=== PATIENT | female | born 1960 | race Caucasian/White ===

== ENCOUNTER 2017-06-15 13:37 | Emergency (ER) | payer MEDICARE ==
[2017-06-15] MEDS ORDERED: NORMAL SALINE 1000 ML 1,000 ML IV PRN (14:04)
--- NOTE | 2017-06-15 14:05 | ER Document Report ---
ED Medical Screen (RME) - General Chief Complaint: Pain All Over Stated Complaint: ABDOMINAL PAIN Time Seen by Provider: 06/15/17 14:02 Notes: Patient presents stating that she is having pain all over. She is also having swelling of her hands and feet. She states she has been diagnosed with stage III kidney disease as well. She states her urine is darker and she is urinating more frequently. She states she also has decreased appetite and feels weak. TRAVEL OUTSIDE OF THE [place] IN LAST 30 DAYS: No - Related Data Allergies/Adverse Reactions: adhesive tape Allergy (Verified 06/15/17 13:58) iodine [Iodine] Adverse Reaction (Verified 06/15/17 13:46) contrast media Adverse Reaction (Severe, Uncoded 06/15/17 13:46) hives, hyperactivity, itching Past Medical History - Social History Frequency of alcohol use: Occasional Drug Abuse: Marijuana - Past Medical History Cardiac Medical History: Reports: Hx Hypertension Denies: Hx Coronary Artery Disease, Hx Heart Attack Pulmonary Medical History: Denies: Hx Asthma, Hx Bronchitis, Hx COPD, Hx Pneumonia Neurological Medical History: Reports: Hx Migraine. Denies: Hx Seizures Renal/ Medical History: Denies: Hx Peritoneal Dialysis Musculoskeltal Medical History: Reports Hx Arthritis - back Psychiatric Medical History: Reports: Hx Attention Deficit Hyperactivity Disorder, Hx Post Traumatic Stress Disorder Past Surgical History: Reports: Hx Section, Hx Orthopedic Surgery - bunionectomy, carpal tunnel R wrist - Immunizations Hx Diphtheria, Pertussis, Tetanus Vaccination: Yes - 2007 Physical Exam - Vital signs Vitals: Temp Pulse Resp BP Pulse Ox 98.5 F 90 16 127/92 H 100 06/15/17 13:42 06/15/17 13:42 06/15/17 13:42 06/15/17 13:42 06/15/17 13:42 Course - Vital Signs Vital signs: Temp Pulse Resp BP Pulse Ox 98.5 F 90 16 127/92 H 100 06/15/17 13:42 06/15/17 13:42 06/15/17 13:42 06/15/17 13:42 06/15/17 13:42
[2017-06-15 14:30] LABS: APPEARANCE,URINE CLEAR; BILIRUBIN,URINE NEGATIVE (NEGATIVE); GLUCOSE, URINE NEGATIVE (NEGATIVE); KETONES,URINE NEGATIVE (NEGATIVE); LEUKOCYTE ESTERASE,URINE NEGATIVE (NEGATIVE); NITRITE,URINE NEGATIVE (NEGATIVE); PROTEIN,URINE NEGATIVE (NEGATIVE); UROBILINOGEN,URINE NEGATIVE mg/dL (<2.0)
[2017-06-15 15:10] LABS: ABSOLUTE BASOPHILS # (AUTO) 0.1 10^3/uL (0.0-0.2); ABSOLUTE LYMPHOCYTES (AUTO) 1.1 10^3/uL (0.5-4.7); ABSOLUTE MONOCYTES (AUTO) 0.3 10^3/uL (0.1-1.4); ABSOLUTE NEUT (AUTO) 2.7 10^3/uL (1.7-8.2); BASOPHILS % (AUTO) 1.3 % (0-2); HEMATOCRIT 41.7 % (36.0-47.0); HEMOGLOBIN 14.8 g/dL (12.0-15.5); HGB HCT DIFFERENCE 2.7; LYMPHOCYTES % (AUTO) 26.3 % (13-45); MEAN CORPUSCULAR HEMOGLOBIN 32.4 pg (27.0-33.4); MEAN CORPUSCULAR HGB CONC 35.4 g/dL (32.0-36.0); MEAN CORPUSCULAR VOLUME 92 fl (80-97); RED BLOOD COUNT 4.55 10^6/uL (3.72-5.28); RED CELL DISTRIBUTION WIDTH 13.3 % (11.5-14.0); SEGMENTED NEUTROPHILS % (AUTO) 64.4 % (42-78); WHITE BLOOD COUNT 4.2 10^3/uL (4.0-10.5)
[2017-06-15 15:26] LABS: ALANINE AMINOTRANSFERASE 22 U/L (9-52); ALBUMIN 4.9 g/dL (3.5-5.0); ALKALINE PHOSPHATASE 65 U/L (38-126); ANION GAP 14 (5-19); ASPARTATE AMINO TRANSFERASE 42 U/L (14-36); BILIRUBIN,DIRECT 0.5 mg/dL (0.0-0.4); BILIRUBIN,TOTAL 0.8 mg/dL (0.2-1.3); BLOOD UREA NITROGEN 21 mg/dL (7-20); CALCIUM 9.8 mg/dL (8.4-10.2); CARBON DIOXIDE 26 mmol/L (22-30); CHLORIDE 100 mmol/L (98-107); CREATININE RESULT 1.01 mg/dL (0.52-1.25); GLUCOSE 108 mg/dL (75-110); POTASSIUM 3.9 mmol/L (3.6-5.0); SODIUM 139.6 mmol/L (137-145); TOTAL PROTEIN 8.3 g/dL (6.3-8.2)
[2017-06-15] MEDS ORDERED: DIAZEPAM INJ 10 MG/2 ML DISP.SYRIN IV ONE (16:45)
[2017-06-15] MEDS ORDERED: DIPHENHYDRAMINE HCL 50 MG/ML VIAL IV ONE (17:15)
--- NOTE | 2017-06-15 17:56 | RADIOLOGY REPORT (SQ) ---
EXAM DESCRIPTION: CT ABD/PELVIS WITH IV ONLY COMPLETED DATE/TIME: 06/15/2017 5:34 pm REASON FOR STUDY: abd pain, lack of appetite COMPARISON: None. TECHNIQUE: CT scan of the abdomen and pelvis performed using helical scanning technique with dynamic intravenous contrast injection. No oral contrast. Images reviewed with lung, soft tissue, and bone windows. Reconstructed coronal and sagittal MPR images reviewed. Delayed images for evaluation of the urinary system also acquired. All images stored on PACS. All CT scanners at this facility use dose modulation, iterative reconstruction, and/or weight based d osing when appropriate to reduce radiation dose to as low as reasonably achievable (ALARA). [facility]: Dose Right [facility]: CareDose [facility]: Dose Right [facility]: Teradose 4D [facility]: Cava Grill CONTRAST TYPE AND DOSE: contrast/concentration: Isovue 370.00 mg/ml; Total Contrast Delivered: 75.0 ml; Total Saline Delivered: 37.0 ml RENAL FUNCTION: GFR > 60. RADIATION DOSE: Up-to-date CT equipment and radiation dose reduction techniques were employed. CTDIv ol: 6.6 - 9.3 mGy. DLP: 754 mGy-cm.. LIMITATIONS: None. FINDINGS: LOWER CHEST: No significant findings. No nodules or infiltrates. LIVER: Normal size. No masses. No dilated ducts. SPLEEN: Normal size. No focal lesions. PANCREAS: No masses. No significant calcifications. No adjacent inflammation or peripancreatic fluid collections. Pancreatic duct not dilated. GALLBLADDER: No identified stones by CT criteria. No inflammatory changes to suggest cholecystitis. ADRENAL GLANDS: No significant masses or asymmetry. RIGHT KIDNEY AND URETER: No solid masses. No significant calcifications. No hydronephrosis or hyd roureter. LEFT KIDNEY AND URETER: No solid masses. No significant calcifications. No hydronephrosis or hydr oureter. AORTA AND VESSELS: No aneurysm. No dissection. Renal arteries, SMA, celiac without stenosis. RETROPERITONEUM: No retroperitoneal adenopathy, hemorrhage or masses. BOWEL AND PERITONEAL CAVITY: No masses or inflammatory changes. No free fluid or peritoneal masses. APPENDIX: Normal. PELVIS: No mass. No free fluid. Normal bladder. ABDOMINAL WALL: No masses. No hernias. BONES: No significant or acute findings. OTHER: No other significant finding. IMPRESSION: NO ACUTE FINDING IN THE ABDOMEN OR PELVIS ON CT SCAN WITH IV CONTRAST. TECHNICAL DOCUMENTATION: JOB ID: [id number] Quality ID # [id number]: Final reports with documentation of one or more dose reduction techniques (e.g., Au tomated exposure control, adjustment of the mA and/or kV according to patient size, use of iterative reconstruction technique) 2010 [employer]- All Rights Reserved
--- NOTE | 2017-06-15 18:02 | ER Document Report ---
ED General Pain - General Chief Complaint: Pain All Over Stated Complaint: ABDOMINAL PAIN Time Seen by Provider: 06/15/17 14:02 Mode of Arrival: Ambulatory Information source: Patient Notes: Patient is a 57-year-old female who presents to the ER today for multiple complaints including swelling in her hands and feet, pain to her forearms, back , hips and dark urine, all going on for many months. Patient states that she has chronic kidney disease stage III that she just found out about a week ago and is upset about that. Patient denies any medical history of any diagnoses that explain her pain and swelling, she denies CHF or rheumatoid diseases. She is very tearful and does not give a very clear history or clear complaint of why she is here today. She also complains of abdominal pain all over for the past 4 days with lack of appetite, nausea and multiple episodes of vomiting. She denies any diarrhea. TRAVEL OUTSIDE OF THE [place] IN LAST 30 DAYS: No - Related Data Allergies/Adverse Reactions: adhesive tape Allergy (Verified 06/15/17 13:58) iodine [Iodine] Adverse Reaction (Verified 06/15/17 13:46) contrast media Adverse Reaction (Severe, Uncoded 06/15/17 13:46) hives, hyperactivity, itching Past Medical History - General Information source: Patient - Social History Smoking Status: Never Smoker Frequency of alcohol use: Occasional Drug Abuse: Marijuana Family History: Reviewed & Not Pertinent Patient has suicidal ideation: No Patient has homicidal ideation: No - Past Medical History Cardiac Medical History: Reports: Hx Hypertension Denies: Hx Coronary Artery Disease, Hx Heart Attack Pulmonary Medical History: Denies: Hx Asthma, Hx Bronchitis, Hx COPD, Hx Pneumonia Neurological Medical History: Reports: Hx Migraine. Denies: Hx Seizures Renal/ Medical History: Denies: Hx Peritoneal Dialysis Musculoskeltal Medical History: Reports Hx Arthritis - back Psychiatric Medical History: Reports: Hx Attention Deficit Hyperactivity Disorder, Hx Post Traumatic Stress Disorder Past Surgical History: Reports: Hx Section, Hx Orthopedic Surgery - bunionectomy, carpal tunnel R wrist - Immunizations Hx Diphtheria, Pertussis, Tetanus Vaccination: Yes - 2007 Review of Systems - Review of Systems Constitutional: No symptoms reported EENT: No symptoms reported Cardiovascular: No symptoms reported Respiratory: No symptoms reported Gastrointestinal: No symptoms reported Genitourinary: See HPI Female Genitourinary: No symptoms reported Musculoskeletal: See HPI Skin: See HPI Hematologic/Lymphatic: No symptoms reported Neurological/Psychological: No symptoms reported Physical Exam - Vital signs Vitals: Temp Pulse Resp BP Pulse Ox 98.5 F 90 16 127/92 H 100 06/15/17 13:42 06/15/17 13:42 06/15/17 13:42 06/15/17 13:42 06/15/17 13:42 - Notes Notes: PHYSICAL EXAMINATION: GENERAL: Tearful, anxious in no acute distress. HEAD: Atraumatic, normocephalic. EYES: Pupils equal round and reactive to light, extraocular movements intact, sclera anicteric, conjunctiva are normal. NECK: Normal range of motion, supple without lymphadenopathy LUNGS: CTAB and equal. No wheezes rales or rhonchi. HEART: Regular rate and rhythm without murmurs ABDOMEN: Soft, mild diffuse tenderness. No guarding, no rebound BACK: no vertebral tenderness, normal ROM GI/: no CVA tenderness EXTREMITIES: Normal range of motion, no pitting edema. No cyanosis. NEUROLOGICAL: Cranial nerves grossly intact. Normal sensory/motor exams. PSYCH: Tearful, anxious, difficult to direct SKIN: Warm, Dry, normal turgor, no rashes or lesions noted Course - Re-evaluation Re-evalutation: 06/16/17 08:12 Lab work is unremarkable today including normal kidney function, normal, crystal -clear urine, I do not know really what patient came in for today., She is absolutely no swelling and she is not tender to her back or extremities while I speak with her and palpate at the same time. I did CAT scan her abdomen due to her complaints of abdominal pain and decreased appetite and lack of ability to give me a true history, but it was negative today. - Vital Signs Vital signs: Temp Pulse Resp BP Pulse Ox 98.3 F 90 19 135/96 H 100 06/15/17 18:00 06/15/17 13:42 06/15/17 18:14 06/15/17 18:14 06/15/17 18:14 - Laboratory Result Diagrams: 06/15/17 14:47 06/15/17 14:47 Laboratory results interpreted by me: 06/15/17 14:47 BUN 21 H Est GFR (Non-Af Amer) 56 L Direct Bilirubin 0.5 H AST 42 H Total Protein 8.3 H Discharge - Discharge Clinical Impression: Pain aggravated by activities of daily living Condition: Stable Disposition: HOME, SELF-CARE Additional Instructions: Return immediately for any new or worsening symptoms. Follow up with primary care provider, call tomorrow to make followup appointment. Referrals: ANA ROSA BAER FNP-C [Primary Care Provider] - Follow up as needed
[2017-06-15] MEDS ORDERED: MORPHINE SULFATE 10 MG/ML INJ IV ONE (18:07)
[2017-06-15 18:39] VITALS: BP 135/96
== END 2017-06-15 18:28 | disposition home or self-care (01) ==
LOC: ER 13:37
DX: M79.1 Myalgia (principal); R10.9 Unspecified abdominal pain; M79.89 Other specified soft tissue disorders; N18.3 Chronic kidney disease, stage 3 (moderate)
CPT/HCPCS: 99284; 96361; 96374; 96375; 36415; 82550; 85025; 80053; 81001; 74177; J3360; J1200; J2270; J7030

== ENCOUNTER 2018-07-03 18:04 | Emergency (ER) | payer MEDICARE ==
[2018-07-03] MEDS ORDERED: EPINEPHRINE INJ/PF 1 MG/1 ML AMPULE IM ONE (18:23)
[2018-07-03] MEDS ORDERED: NORMAL SALINE 1000 ML 1,000 ML IV ONE (18:24)
--- NOTE | 2018-07-03 19:01 | ER Document Report ---
ED General - General Chief Complaint: Allergic Reaction Stated Complaint: ALLERGIC REACTION Time Seen by Provider: 07/03/18 18:15 Notes: Patient is a 58-year-old female that presents to the emergency department for chief complaint of syncope and shortness of breath. Patient states that she has been having sore throat, and cough and shortness of breath over the past few days but it became significantly worse today. She states she has been stung by fire ants today, and has severe seasonal allergies, think she may been exposed to mold. She was out of the house, today and had a syncopal episode, EMS was called and she was brought to the emergency department. The patient received Solu-Medrol, IM epinephrine, Benadryl, and Pepcid prior to ED arrival. She is also given IV fluids. She was noted to be wheezing by EMS. At this time the patient does feel better. She denies having any chest pain, headache, nausea, vomiting, abdominal pain. Past Medical History: Seasonal allergies, hypertension, osteoarthritis, degenerative disc disease Past Surgical History: Umbilical hernia repair Social History: Denies tobacco, alcohol or drug use. Family History: Reviewed and noncontributory for presenting illness Allergies: Reviewed, see documented allergy list. REVIEW OF SYSTEMS: Unless otherwise stated in this report the patient's positive and negative responses for review of systems for constitutional, eyes, ENT, cardiovascular, respiratory, gastrointestinal, neurological, genitourinary, musculoskeletal, and integumentary systems and related systems to the presenting problem are either as stated in the HPI or were not pertinent or were negative for the symptoms and/or complaints related to the presenting medical problem. PHYSICAL EXAMINATION: Vital signs reviewed, nursing noted reviewed. GENERAL: Well-appearing, well-nourished and in moderate distress HEAD: Atraumatic, normocephalic. EYES: Eyes appear normal, extraocular movements intact, sclera anicteric, conjunctiva are normal. ENT: nares patent, oropharynx demonstrates, mild uvular edema, no lipedema. Moist mucous membranes. NECK: Normal range of motion, supple without lymphadenopathy LUNGS: Breath sounds clear to auscultation bilaterally and equal. No wheezes rales or rhonchi. HEART: Heart rate mildly tachycardic, regular rhythm, no audible murmur ABDOMEN: Soft, nontender, normoactive bowel sounds. No rebound, guarding, or rigidity. No masses appreciated. EXTREMITIES: Nontender, good range of motion, no pitting or edema. NEUROLOGICAL: No focal neurological deficits. Moves all extremities spontaneously Motor and sensory grossly intact on exam. PSYCH: Anxious, but appropriate SKIN: Warm, Dry, normal turgor, several lesions, consistent with insect bites, likely fire ant bites. No open wounds, or pus drainage. TRAVEL OUTSIDE OF THE [place] IN LAST 30 DAYS: No - Related Data Allergies/Adverse Reactions: adhesive tape Allergy (Verified 06/15/17 13:58) house dust Allergy (Verified 07/03/18 18:15) latex Allergy (Verified 07/03/18 18:15) iodine [Iodine] Adverse Reaction (Verified 06/15/17 13:46) ants Allergy (Uncoded 07/03/18 18:15) dust Allergy (Uncoded 07/03/18 18:15) mold Allergy (Uncoded 07/03/18 18:15) contrast media Adverse Reaction (Severe, Uncoded 06/15/17 13:46) hives, hyperactivity, itching Past Medical History - Social History Smoking Status: Unknown if Ever Smoked Family History: Reviewed & Not Pertinent Patient has suicidal ideation: No Patient has homicidal ideation: No - Past Medical History Cardiac Medical History: Reports: Hx Hypertension Denies: Hx Coronary Artery Disease, Hx Heart Attack Pulmonary Medical History: Denies: Hx Asthma, Hx Bronchitis, Hx COPD, Hx Pneumonia Neurological Medical History: Reports: Hx Migraine. Denies: Hx Seizures Renal/ Medical History: Denies: Hx Peritoneal Dialysis Musculoskeletal Medical History: Reports Hx Arthritis - back Psychiatric Medical History: Reports: Hx Attention Deficit Hyperactivity Disorder, Hx Post Traumatic Stress Disorder Past Surgical History: Reports: Hx Section, Hx Orthopedic Surgery - bunionectomy, carpal tunnel R wrist - Immunizations Hx Diphtheria, Pertussis, Tetanus Vaccination: Yes - 2007 Physical Exam - Vital signs Vitals: Temp Pulse Resp Pulse Ox 98.8 F 91 22 H 100 07/03/18 18:11 07/03/18 18:11 07/03/18 18:11 07/03/18 18:11 Course - Re-evaluation Re-evalutation: Patient seen and examined vital signs reviewed. Patint was evaluated and treated as appropriate for the patient's presenting symptoms and complaint, with consideration of any critical or life threatening conditions that may be associated with their obtained history and exam as noted above. Patient was treated with IM epinephrine by EMS, Solu-Medrol, Benadryl, Pepcid, patient was noted to have mild uvular edema, however no airway compromise, will monitor the patient, the patient is improved, and edema is resolved, we will discharge the patient home, with an EpiPen, and prescription for prednisone, Pepcid, and Benadryl. The patient was re-evaluated and was much improved, her uvula edema was completely resolved, she was feeling much better, no longer had sore throat, breathing was easy, and overall patient states she feels much improved Evaluation was most consistent with anaphylaxis, syncopal episode, likely secondary to fire and venom Plan of care was discussed with the patient at this point, after careful consideration I feel that that patient can be discharged from the emergency department, the patient was educated treatments and reasons to return to the emergency department based on their presumed diagnosis as noted above, they were advised to followup with a primary care physician in 2-3 days. Patient was agreeable to plan of care. *Note is created using voice recognition software and may contain spelling, syntax or grammatical errors. - Vital Signs Vital signs: Temp Pulse Resp BP Pulse Ox 98.8 F 91 14 126/90 H 100 07/03/18 18:11 07/03/18 18:11 07/03/18 21:55 07/03/18 21:55 07/03/18 21:55 Critical Care Note - Critical Care Note Total time excluding time spent on procedures (mins): 45 Comments: Critical care time 45 minutes exclusive from separate billable procedures for a patient requiring complex medical decision making, and high potential for clinical deterioration. Time spent obtaining history from patient or surrogate, discussions with consultants, development of treatment plan with patient or surrogate, evaluation of patient's response to treatment, examination of patient , ordering and performing treatments and interventions, ordering and review of laboratory studies, re-evaluation of patient's condition, ordering and review of radiographic studies and review of old charts Discharge - Discharge Clinical Impression: Anaphylaxis Qualifiers: Encounter type: initial encounter Qualified Code(s): T78.2XXA - Anaphylactic shock, unspecified, initial encounter Fire ant bite Qualifiers: Encounter type: initial encounter Injury intent: accidental or unintentional Qualified Code(s): T63.421A - Toxic effect of venom of ants, accidental ( unintentional), initial encounter Condition: Stable Disposition: HOME, SELF-CARE Instructions: Acute Allergic Reaction ([facility]) Additional Instructions: Please return to the emergency department if you have any worsening, or concern of your symptoms. Please return to the emergency department if you develop chest pain, difficulty breathing, severe abdominal pain, or ongoing vomiting. Please follow-up with your primary care physician in 2-3 days and any other recommended physicians. If prescribed, take all medications as directed. If you have any questions or concerns do not hesitate to return the emergency department for evaluation. Prescriptions: Epinephrine [Epipen] 0.3 mg IJ ONCE PRN #1 [email or web address] PRN Reason: allergic reaction Prednisone [Deltasone 20 mg Tablet] 2 tab PO DAILY 4 Days #8 tablet Referrals: ANA ROSA BAER FNP-C [COMMUNITY BASED STAFF] - Follow up in 3-5 days
[2018-07-03] MEDS ORDERED: KETOROLAC TROMETHAMINE INJ/PF 30 MG/1 ML SDV IV ONE (19:19)
[2018-07-03 22:04] VITALS: BP 126/90
== END 2018-07-03 22:04 | disposition home or self-care (01) ==
LOC: ER 18:04
DX: T63.421A Toxic effect of venom of ants, accidental (unintentional), initial encounter (principal); T78.2XXA Anaphylactic shock, unspecified, initial encounter; R55 Syncope and collapse; R06.02 Shortness of breath; X58.XXXA Exposure to other specified factors, initial encounter; I10 Essential (primary) hypertension
CPT/HCPCS: 99291; 96361; 96374; J1885

== ENCOUNTER 2018-07-12 12:57 | Emergency (ER) | payer MEDICARE ==
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
[2018-07-12] MEDS ORDERED: CLOTRIMAZOLE 10 MG TROCHE PO ONE (14:00)
--- NOTE | 2018-07-12 14:40 | RADIOLOGY REPORT (SQ) ---
EXAM DESCRIPTION: CHEST 2 VIEWS COMPLETED DATE/TIME: 07/12/2018 2:25 pm REASON FOR STUDY: cough, yellow mucous COMPARISON: 01/19/2012 EXAM PARAMETERS: NUMBER OF VIEWS: two views TECHNIQUE: Digital Frontal and Lateral radiographic views of the chest acquired. RADIATION DOSE: NA LIMITATIONS: none FINDINGS: LUNGS AND PLEURA: Linear atelectasis in the left lung. No infiltrate or effusion or mass. MEDIASTINUM AND HILAR STRUCTURES: No masses or contour abnormalities. HEART AND VASCULAR STRUCTURES: Heart normal size. No evidence for failure. BONES: No acute findings. HARDWARE: None in the chest. OTHER: No other significant finding. IMPRESSION: NO ACUTE RADIOGRAPHIC FINDING IN THE CHEST. TECHNICAL DOCUMENTATION: JOB ID: [id number] [employer]- All Rights Reserved Reading location - IP/workstation name: [email or web address]
[2018-07-12 15:32] VITALS: BP 131/89
== END 2018-07-12 15:32 | disposition home or self-care (01) ==
LOC: ER 12:57
DX: B37.0 Candidal stomatitis (principal); J04.0 Acute laryngitis; J40 Bronchitis, not specified as acute or chronic; I10 Essential (primary) hypertension
CPT/HCPCS: 99283; 82962; 71046; J3490

== ENCOUNTER 2019-03-14 14:40 | Emergency (ER) | payer MEDICARE, OTHER ==
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
[2019-03-14] MEDS ORDERED: OXYCODONE-ACETAMINOPHEN 5-325 MG TABLET PO ONE (16:02)
[2019-03-14] MEDS ORDERED: DIPHENHYDRAMINE HCL 25 MG CAPSULE PO ONE (16:02)
[2019-03-14 16:25] VITALS: BP 141/95
== END 2019-03-14 16:25 | disposition home or self-care (01) ==
LOC: ER 14:40
DX: S40.212A Abrasion of left shoulder, initial encounter (principal); S50.312A Abrasion of left elbow, initial encounter; S60.417A Abrasion of left little finger, initial encounter; R51 Headache; M54.2 Cervicalgia; M25.512 Pain in left shoulder; M25.522 Pain in left elbow; V19.9XXA Pedal cyclist (driver) (passenger) injured in unspecified traffic accident, initial encounter; Y93.55 Activity, bike riding; I10 Essential (primary) hypertension; Z91.048 Other nonmedicinal substance allergy status; Z88.0 Allergy status to penicillin; Z91.040 Latex allergy status; Z91.038 Other insect allergy status
CPT/HCPCS: 99284; 73080; 73030; 70450; 72125; L0120 ×2; A9270 ×2; L0172